=== PATIENT | male | born 1965 | race Caucasian/White ===

== ENCOUNTER → 2016-12-04 | Outpatient (CLI) | payer OTHER | LOC: FIMAGING 14:46 | PROVIDERS: ATTEND Physician Assistant Medical | DX: R10.32 Left lower quadrant pain (principal) ==

== ENCOUNTER 2018-01-15 18:42 | Observation (INO) | payer OTHER ==
--- NOTE | 2018-01-15 18:58 | EDPHY ---
HPI/HX/ROS/PE/MDM Narrative: CHIEF COMPLAINT: Rapid heart rate, weakness HISTORY OF PRESENT ILLNESS: The patient is a 52 y/o male complaining of a rapid heart rate of 100-115 BPM and weakness since this morning. This heart rate does not feel irregular. For the past several days, he has been more stressed but the stress worsened today. He did a hike this morning and his heart rate never decreased after the hike. When he returned home from work, he noticed that his heart rate continued to remain high, even while lying down. He also felt weak and chilled, but denies dizziness or lightheadedness. No chest pain, shortness of breath, numbness. Denies history of diabetes or CAD. In addition to the rapid heart rate and weakness, he had one episode of diarrhea today. He does believe he drank less water than normal today as he had decreased thirst. Several days ago he drank more alcohol than normal and he last used cocaine 3 weeks ago. No fever, chest pain, shortness of breath, palpitations, vomiting, urinary complaints, headache. REVIEW OF SYSTEMS: Aside from elements discussed in the HPI, a comprehensive 10-point review of systems was reviewed and is negative. PAST MEDICAL HISTORY: Denies. Reports having an executive physical 1 month ago and being told he had a right bundle branch block on his EKG. SOCIAL HISTORY: at bedside, works as a security operations center analyst, lives in [place], drinks alcohol daily VITAL SIGNS: Reviewed by me. Temperature 37.6 degrees GENERAL: Well-developed, well-nourished, resting comfortably in no respiratory distress. Seems anxious. HEENT: Atraumatic. Eyes: No icterus, no injection. Mouth: moist mucous membranes. No erythema or lesions. Neck: supple with no adenopathy. LUNGS: Clear to auscultation bilaterally, no wheezes, rhonchi or rales. CARDIAC: Borderline regular tachycardia, no rubs, murmurs or gallops. ABDOMEN: Soft, nontender, nondistended, bowel sounds normal. BACK: No CVA tenderness. EXTREMITIES: No trauma. No edema. Range of motion is normal throughout. NEURO: Alert and oriented, grossly nonfocal. SKIN: Warm and dry, no rash. PSYCHIATRIC: Normal mentation, no agitation. Portions of this note were transcribed by a medical social worker. I personally performed a history, physical exam, medical decision making, and confirmed accuracy of information the transcribed note. ED Course: The patient is a 52 y/o male presenting with a rapid heart rate of 100-115 BPM and weakness since this morning. On exam he is borderline tachycardic and his lungs are clear. Labs, EKG, and chest x-ray ordered. 1L IV NS administered. 1909: 12-LEAD EKG: Please see the full report in [facility]. My interpretation: Sinus rhythm with a rate of 99, RBBB, deep notched S wave versus T-wave inversion V3 2003: Prior medical records reviewed [facility] on 12/01/17. The patient has a RBBB with a slower rate in the 50's, however the morphology of the bundle branch block as changed with slurred S is on today's EKG throughout the precordium. Patient's drug tox screen reveals cocaine and marijuana. His troponin is normal, d-dimer still pending. 2014: Reassessed patient and discussed laboratory and imaging findings. EKG findings may simply be rate related, however, morphology of V3 is rather unusual. The setting of a 52-year-old male with persistent tachycardia and hypertension today, cocaine use, and EKG changes in comparison to 1 month ago, feel the most appropriate plan is to admit the patient to observation for serial troponins. Patient received 1 mg of Ativan and a L of normal saline. 2035: Consulted with hospitalist service, Dr. Perez accepts admission of this patient. Recommend repeat EKG will be preformed on the floor when his heart rate decreases to the 50s. MDM: Differential diagnosis of the patient's presenting complaint of increased heart rate was considered including but not limited to various causes of sinus tachycardia, SVT, atrial flutter and atrial fibrillation. Differential patient's EKG changes was considered included rate related bundle branch block, ischemia, electrolyte abnormalities. - Data Points Imaging Results: Imaging Impressions Chest X-Ray 01/15/18 19:17 Impression: No active cardiac pulmonary disease seen.. Imaging: I viewed and interpreted images myself Laboratory Results: Laboratory Results 01/15/18 19:24 01/15/18 19:24 01/15/18 01/15/18 01/15/18 19:50 19:24 19:24 WBC RBC Hgb Hct MCV MCH MCHC RDW Plt Count MPV Neut % (Auto) Lymph % (Auto) [place] % (Auto) Eos % (Auto) Baso % (Auto) Nucleat RBC Rel Count Absolute Neuts (auto) Absolute Lymphs (auto) Absolute Monos (auto) Absolute Eos (auto) Absolute Basos (auto) Absolute Nucleated RBC Immature Gran % Immature Gran # D-Dimer < 0.27 ug/mLFEU ug/mLFEU (0.00-0.50) Sodium 135 mEq/L mEq/L (135-145) Potassium 4.2 mEq/L mEq/L (3.5-5.2) Chloride 101 mEq/L mEq/L (97-110) Carbon Dioxide 23 mEq/l mEq/l (22-31) Anion Gap 11 mEq/L mEq/L (8-16) BUN 14 mg/dL mg/dL (7-23) Creatinine 0.9 mg/dL mg/dL (0.7-1.3) Estimated GFR > 60 Glucose 124 mg/dL H mg/dL (70-100) Calcium 9.7 mg/dL mg/dL (8.5-10.4) Troponin I < 0.012 ng/mL ng/mL (0.000-0.034) Urine Color YELLOW Urine Appearance CLEAR Urine pH 7.0 (5.0-7.5) Ur Specific Mcguffey 1.023 (1.002-1.030) Urine Protein NEGATIVE (NEGATIVE) Urine Ketones NEGATIVE (NEGATIVE) Urine Blood NEGATIVE (NEGATIVE) Urine Nitrate NEGATIVE (NEGATIVE) Urine Bilirubin NEGATIVE (NEGATIVE) Urine Urobilinogen NEGATIVE EU EU (0.2-1.0) Ur Leukocyte Esterase NEGATIVE (NEGATIVE) Urine RBC 1-3 /hpf /hpf (0-3) Urine WBC 1-3 /hpf /hpf (0-3) Ur Epithelial Cells NONE SEEN /lpf /lpf (NONE-1+) Urine Glucose NEGATIVE (NEGATIVE) Urine Opiates Screen NEGATIVE (NEGATIVE) Urine Barbiturates NEGATIVE (NEGATIVE) Ur Phencyclidine Scrn NEGATIVE (NEGATIVE) Ur Amphetamine Screen NEGATIVE (NEGATIVE) U Benzodiazepines Scrn NEGATIVE (NEGATIVE) Urine Cocaine Screen NON-NEGATIVE H (NEGATIVE) U Marijuana (THC) Screen NON-NEGATIVE H (NEGATIVE) 01/15/18 19:24 WBC 14.54 10^3/uL H 10^3/uL (3.80-9.50) RBC 5.48 10^6/uL 10^6/uL (4.40-6.38) Hgb 16.8 g/dL g/dL (13.7-17.5) Hct 48.0 % % (40.0-51.0) MCV 87.6 fL fL (81.5-99.8) MCH 30.7 pg pg (27.9-34.1) MCHC 35.0 g/dL g/dL (32.4-36.7) RDW 12.7 % % (11.5-15.2) Plt Count 202 10^3/uL 10^3/uL (150-400) MPV 11.5 fL fL (8.7-11.7) Neut % (Auto) 93.4 % H % (39.3-74.2) Lymph % (Auto) 3.0 % L % (15.0-45.0) [place] % (Auto) 2.8 % L % (4.5-13.0) Eos % (Auto) 0.1 % L % (0.6-7.6) Baso % (Auto) 0.2 % L % (0.3-1.7) Nucleat RBC Rel Count 0.0 % % (0.0-0.2) Absolute Neuts (auto) 13.58 10^3/uL H 10^3/uL (1.70-6.50) Absolute Lymphs (auto) 0.44 10^3/uL L 10^3/uL (1.00-3.00) Absolute Monos (auto) 0.40 10^3/uL 10^3/uL (0.30-0.80) Absolute Eos (auto) 0.02 10^3/uL L 10^3/uL (0.03-0.40) Absolute Basos (auto) 0.03 10^3/uL 10^3/uL (0.02-0.10) Absolute Nucleated RBC 0.00 10^3/uL 10^3/uL (0-0.01) Immature Gran % 0.5 % % (0.0-1.1) Immature Gran # 0.07 10^3/uL 10^3/uL (0.00-0.10) D-Dimer Sodium Potassium Chloride Carbon Dioxide Anion Gap BUN Creatinine Estimated GFR Glucose Calcium Troponin I Urine Color Urine Appearance Urine pH Ur Specific Mcguffey Urine Protein Urine Ketones Urine Blood Urine Nitrate Urine Bilirubin Urine Urobilinogen Ur Leukocyte Esterase Urine RBC Urine WBC Ur Epithelial Cells Urine Glucose Urine Opiates Screen Urine Barbiturates Ur Phencyclidine Scrn Ur Amphetamine Screen U Benzodiazepines Scrn Urine Cocaine Screen U Marijuana (THC) Screen Medications Given: Discontinued Medications Sodium Chloride (Ns) 1,000 mls @ 0 mls/hr IV ONCE ONE; Wide Open PRN Reason: Protocol Stop: 01/15/18 20:26 Last Admin: 01/15/18 20:26 Dose: 1,000 mls Lorazepam (Ativan Injection) 0.5 mg IVP EDNOW ONE Stop: 01/15/18 20:07 Last Admin: 01/15/18 20:28 Dose: Not Given Lorazepam (Ativan Injection) 1 mg IVP EDNOW ONE Stop: 01/15/18 20:10 Last Admin: 01/15/18 20:17 Dose: 1 mg General Time Seen by Provider: 01/15/18 18:56 Initial Vital Signs: Initial Vital Signs Temperature (C) 37.6 C 01/15/18 18:45 Heart Rate 102 H 01/15/18 18:45 Respiratory Rate 16 01/15/18 18:45 Blood Pressure 148/92 H 01/15/18 18:45 O2 Sat (%) 93 01/15/18 18:45 O2 Delivery Mode Room Air Allergies/Adverse Reactions: No Known Allergies Allergy (Unverified 01/15/18 18:45) Home Medications: Medication Instructions Recorded Fluticasone Nasal [Flonase Nasal 1 sprays EACHNARE DAILY PRN 01/15/18 [place] (RX)] Ibuprofen [Motrin (*)] 400 mg PO DAILY PRN 01/15/18 Multivitamins [Multivitamin (*)] 1 tab PO HS 01/15/18 Testosterone [ANDROGEL 1% 5gm pkt 5 gm TD DAILY 01/15/18 (*)] Zolpidem Tartrate [Ambien] 5 mg PO HS PRN 01/15/18 Departure - Departure Disposition: [facility] Acute Clinical Impression: Tachycardia, Acute electrocardiogram changes, Polysubstance abuse Condition: Fair Report Scribed for: Felisha Desouza Report Scribed by: Lindy Bloom Date of Report: 01/15/18 Time of Report: 18:58
--- NOTE | 2018-01-15 19:12 | CPEKG ---
Heart Rate: 99 RR Interval: 606 P-R Interval: 144 QRSD Interval: 124 QT Interval: 348 QTC Interval: 447 P [place]: 57 QRS [place]: 91 T Wave [place]: 16 EKG Severity - ABNORMAL ECG - EKG Impression: SINUS RHYTHM EKG Impression: PROBABLE LEFT ATRIAL ABNORMALITY EKG Impression: RIGHT BUNDLE BRANCH BLOCK Electronically Signed By: Emmanuel Wood 15-Jan-2018 21:02:57
[2018-01-15 19:29] LABS: PLATELET COUNT 202 10^3/uL (150-400)
[2018-01-15] MEDS ORDERED: LORazepam 2 MG/ML INJ IVP ONE ×2 (20:06→20:09)
[2018-01-15] MEDS ORDERED: NS 1,000 ML IV ONE (20:25)
[2018-01-15] MEDS ORDERED: ZOLPIDEM TARTRATE 5 MG TAB PO PRN (21:29)
[2018-01-15] MEDS ORDERED: IBUPROFEN 200 MG TAB PO PRN (21:29)
[2018-01-15] MEDS ORDERED: FLUTICASONE NASAL 120 SPRAYS/16 GM MDI EACHNARE PRN (21:29)
[2018-01-15] MEDS ORDERED: ONDANSETRON 4 MG/2 ML VIAL IVP PRN (21:56)
[2018-01-15] MEDS ORDERED: ACETAMINOPHEN 325 MG TAB PO PRN (21:56)
[2018-01-15] MEDS ORDERED: ONDANSETRON DISINTEGRATING 4 MG TAB PO PRN (21:56)
[2018-01-15] MEDS ORDERED: NS 1,000 ML IV SCH (22:00)
--- NOTE | 2018-01-15 22:22 | GHP ---
[f rep st] HISTORY AND PHYSICAL DATE OF ADMISSION: 01/15/2018 HISTORY OF PRESENT ILLNESS: The patient is a pleasant 52-year-old gentleman with minimal past medica l history, who presents with sinus tachycardia. He said his heart rate is 100 to 120 this morning, w earing an [employer] watch. He denies palpitations, chest pain, shortness of breath. He has no pleuritic chest pain. He has no family history of pulmonary embolism. He used cocaine 2 nights ago, but is not intoxicated now. He also describes a great deal of stress b oth in his marriage and his job. 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 He denies a personal or family history of VTE. He does take testosterone. He states he has been eat ing and drinking a little less well than usual, but his labs are not consistent with dehydration. REVIEW OF SYSTEMS: Complete 10-point review of systems conducted, negative except as noted in the HP I. PAST MEDICAL HISTORY: Right bundle branch block, seasonal allergies. SOCIAL HISTORY: No tobacco. Drinks 1-2 drinks a few nights a week. Works as a field automobile adjuster. . FAMILY HISTORY: Reviewed and fairly unremarkable. No early coronary disease. PHYSICAL EXAMINATION: PRESENTING VITALS: Temp 37.6, blood pressure 140/92, pulse 102 now in the 80s , breathing 16 times a minute, 93% on room air. GENERAL: No acute distress. HEENT: Sclerae anicte pierre. Oropharynx clear. Mucous membranes moist. NECK: Supple. No lymphadenopathy or JVD. LUNGS: Clear to auscultation bilaterally. HEART: Is S1, S2 without murmurs. ABDOMEN: Soft, nontender, n ondistended. LOWER EXTREMITIES: No edema. Calves nontender. SKIN: Without rash. NEUROLOGIC: No nfocal. DATA: EKG interpreted by me shows sinus at 99 with right bundle branch block morphology which is not new. Chest x-ray interpreted by me shows no acute cardiopulmonary disease. I discussed the case with Dr. Felisha Desouza. ASSESSMENT/PLAN: A 52-year-old gentleman with sinus tachycardia. 1. Sinus tachycardia. The patient had a D-dimer of less than 0.27, making venous thromboembolism es sentially ruled out in this very low risk patient. I do acknowledge his testosterone use. At this p oint in time, I think it may be related to his recent drug use and/or stress. I will check a TSH and an echocardiogram in the morning. 2. Right bundle branch block. Echocardiogram in the morning. 3. Sleep apnea. We will continue his CPAP. 4. Prophylaxis. Not indicated, he is low risk. DISPOSITION: Observation status. /[id number]/MODL
[2018-01-16] MEDS ORDERED: TESTOSTERONE 1% 5 GM GEL PKT TD SCH (09:00)
[2018-01-16 12:15] VITALS: BP 129/82
--- NOTE | 2018-01-16 12:20 | ECHO ---
[email or web address] [address] [address] Main: [phone] Fax: [email or web address] Echocardiogram Name: RONI ALLISON MR#: [id number] Study Date: 01/16/2018 Study Time: 07:41 AM Date of : 1965 Age: 52 year(s) Height: 182.9 cm (72 in.) Weight: 92.99 kg (205 lb.) BSA: 2.15 m2 Gender: Male Examination: Echo Indication: RBBB, SINUS TACH Image Quality: Adequate Contrast: Requested by: Sesar Perez BP: 129 mmHg/74 mmHg Heart Rate: Rhythm: Indication: RBBB, SINUS TACH Procedure Staff [employer] Specialist: [place] [facility] Reading Physician: Cm Sol MD Requesting Provider: Conclusions: Normal size left ventricle. No LV hypertrophy. Normal global systolic LV function. EF is 63 %. The left atrium is normal in size. Mild mitral valve regurgitation is present. The aortic valve is normal in appearance and function. Mild aortic valve regurgitation is present. The tricuspid valve is normal in appearance and function. Mild tricuspid regurgitation is present. Right ventricular systolic pressure measures 30mmHg. There is no pulmonic regurgitation seen. No pericardial effusion. Measurements: Chambers Valvular Assessment AV/MV Valvular Assessment TV/PV Normal Normal Normal Name Value Range Name Value Range Name Value Range Ao Carolyn (2D): 3.2 cm (1.4 cm-2.6 AV meanP mmHg ( - ) TR Vmax: 2.48 mm/s ( - ) cm) JEANETTE (VTI): 2.9 cm ( - ) TR PGmax: 25 mmHg ( - ) IVSd (2D): 1.1 cm (0.6 cm-1.1 MV E Vmax: 0.74 m/s ( - ) syst. PAP: 30 mmHg ( - ) cm) MV A Vmax: 0.85 m/s ( - ) PV Vmax: 0.90 m/s (0.6 m/s-0.9 LVDd (2D): 4.9 cm (4.2 cm-5.9 MV E/A: 0.87 ( - ) m/s) cm) MV PHT: 0.067 s ( - ) PV PGmax: 3 mmHg ( - ) LVDs (2D): 3.2 cm (2.1 cm-4 cm) MVA (PHT): 3.3 s ( - ) LVPWd (2D): 1.0 cm (0.6 cm-1 cm) LVOTd 2.2 cm 2.2 cm mm LVEF (BP): 63 % (>=55 %) Patient: RONI ALLISON Study Date: 01/16/2018 Page 1 of 2 07:41 AM RVDd(2D): 3.5 cm (1.9 cm-3.8 cmmm) Continued Measurements: Chambers Valvular Assessment AV/MV Valvular Assessment TV/PV Name Value Name Value Name Value LADs: 3.1 cm MV DecTime: 208 m/s CVP (est.): 5 mmHg LADs Lon.2 cm MV E' Septal: 0.09 m/s LA Area: 17.8 cm2 MV E/E' Septal: 8.20 LA Volume: 53 ml MV E/E' Lateral: 5.90 LA Volume Index: 24.7 ml/m2 RA Area: 17.4 cm2 Additional Vessels Name Value Ao Ascendin.4 cm Inferior Vena Cava: 1.5 cm Findings: Left Ventricle: Normal size left ventricle. No LV hypertrophy. Normal global systolic LV function. EF is 63 %. No regional wall motion abnormality. Unable to assess diastolic dysfunction. Right Ventricle: Normal size right ventricle. Left Atrium: The left atrium is normal in size. Right Atrium: The right atrium is normal in size. Mitral Valve: The mitral valve is normal in appearance and function. Mild mitral valve regurgitation is present. No mitral stenosis is present. Aortic Valve: The aortic valve is normal in appearance and function. Mild aortic valve regurgitation is present. No aortic valve stenosis is present. Tricuspid Valve: The tricuspid valve is normal in appearance and function. Mild tricuspid regurgitation is present. The pulmonary artery pressure is normal. Right ventricular systolic pressure measures 30mmHg. Pulmonic Valve: Pulmonary valve not well visualized. There is no pulmonic regurgitation seen. Aorta: The aorta is normal. Normal size aortic root measuring 3.2 cm. Normal size ascending aorta measuring 3.4 cm. IVC: The IVC is normal sized. Pericardium: No pericardial effusion. No pleural effusion. (No Signature Object) Patient: RONI ALLISON Study Date: 01/16/2018 Page 2 of 2 07:41 AM [id number]
--- NOTE | 2018-01-16 13:49 | GDS ---
[f rep st] DISCHARGE SUMMARY ALL DIAGNOSES: 1. Sinus tachycardia. 2. Cocaine abuse. 3. Anxiety. 4. Significant social stressors. 5. Mild leukocytosis. 6. Right bundle branch block. 7. Sleep apnea. HOSPITAL COURSE: A 52-year-old man who presented after his watch had told him he was tachycardic wit h rates 100-120. He was found to be tachycardic in the emergency department. This was sinus tachyca rdia with a right bundle branch block, he has a known right bundle branch block. Workup for secondar y causes of sinus tachycardia was essentially negative including negative D-dimer, no real infective symptoms (slight leukocytosis noted), normal TSH. He had negative urinalysis and negative chest x-ra y. His echocardiogram was unremarkable. His sinus tachycardia has resolved on the day after admissi on. Suspect that this is due to anxiety and dehydration with remnants of cocaine in his system possi qian contributing. He is discharged in stable condition. He is given a referral to see Cardiology as needed. Recommended that he follow up with Dr. Gonzalez, his primary care physician, for his ongoing anxiety. /[id number]/MODL
[2018-01-16] MEDS ORDERED: MULTIVITAMINS 1 EACH TAB PO SCH (21:00)
== END 2018-01-16 13:29 | disposition home or self-care (01) ==
LOC: F2W 20:55
PROVIDERS: ADMIT Internal Medicine; ATTEND Student in an Organized Health Care Education/Training Program
DX: R00.0 Tachycardia, unspecified (principal); I45.10 Unspecified right bundle-branch block; E86.9 Volume depletion, unspecified; D72.829 Elevated white blood cell count, unspecified; F14.10 Cocaine abuse, uncomplicated; F41.9 Anxiety disorder, unspecified; G47.30 Sleep apnea, unspecified; Z63.79 Other stressful life events affecting family and household
CPT/HCPCS: 71046; 93005; 93306; G0378; 80305; 96374; J2060